=== PATIENT | male | born 1980 | race Caucasian/White ===

== ENCOUNTER 2019-09-02 13:25 | Outpatient (CLI) | payer OTHER ==
--- NOTE | 2019-09-02 16:18 | MRI ---
MRI LEFT KNEE: Date: 09/02/19 PROVIDED CLINICAL HISTORY: Left knee pain status post injury. FINDINGS: The anterior cruciate ligament, posterior cruciate ligament, medial collateral ligament, and lateral collateral ligamentous complex demonstrate an intact MRI appearance, as does the extensor mechanism. The medial and lateral menisci demonstrate no evidence for tear. No focal articular cartilage defect is apparent. There is a mildly prominent medial plica. There is a small knee joint effusion. No focal concerning r egional marrow or muscular signal abnormality is evident. Increased signal intensity on fluid sensiti ve sequences involving the anterior aspects of the patella is presumably on the basis of proximity to the coil given the normal T1 signal intensity present here. IMPRESSION: 1. Mildly prominent medial plica. 2. Small knee joint effusion. POS: OFF
== END 2019-09-02 13:26 | disposition home or self-care (01) ==
LOC: SCSMRI 13:25
PROVIDERS: ATTEND Orthopaedic Surgery
DX: M25.562 Pain in left knee (principal); M67.52 Plica syndrome, left knee; M25.462 Effusion, left knee

== ENCOUNTER 2019-10-15 07:02 | Outpatient (CLI) | payer OTHER ==
[2019-10-15 15:03] LABS: #Eosinphils 0.4 thou/uL (0.0-0.7); #Lymphocytes 1.9 thou/uL (1.20-3.40); #Monocytes 0.6 thou/uL (0.11-0.59); #Neutrophils 4.7 thou/uL (1.40-6.50); %Basophils 0.6 % (0.0-1.0); %Eosinophils 5.1 % (0.0-10.0); %Lymphocytes 25.2 % (21.0-51.0); %Neutrophils 61.2 % (42.0-75.0); Hemoglobin 14.9 g/dL (14.0-18.0); Mean Corpuscular HGB CONC 33.3 g/dL (32.0-36.0); Mean Corpuscular Hemoglobin 27.1 pg (27.0-31.0); Mean Corpuscular Volume 81.3 fL (78.0-98.0); Mean Platelet Volume 7.8 fL (7.4-10.4); Platelet Count 305 thou/uL (130-400); Red Blood Cell (RBC) Count 5.49 mill/uL (4.70-6.10); White Blood Cell (WBC) Count 7.6 thou/uL (4.8-10.8)
== END 2019-10-15 07:03 | disposition home or self-care (01) ==
LOC: LABBT 07:02
PROVIDERS: ATTEND Orthopaedic Surgery
DX: Z01.812 Encounter for preprocedural laboratory examination (principal); M23.92 Unspecified internal derangement of left knee
CPT/HCPCS: 85025

== ENCOUNTER 2019-10-18 06:10 | Day surgery (SDC) | payer OTHER ==
[2019-10-15 13:32] VITALS: BMI 25.8
[2019-10-18] MEDS ORDERED: PROPOFOL 20 ML ONE (06:39)
[2019-10-18] MEDS ORDERED: Fentanyl 100 MCG/2 ML VIAL ONE (07:02)
[2019-10-18] MEDS ORDERED: Midazolam HCl 2 mg/2 ml Vial ONE (07:02)
[2019-10-18] MEDS ORDERED: Ketorolac Tromethamine 30 MG/ML VIAL ONE (08:36)
--- NOTE | 2019-10-18 09:17 | OP ---
DATE OF PROCEDURE: 10/18/2019 PREOPERATIVE DIAGNOSIS: Symptomatic plica, left knee. POSTOPERATIVE DIAGNOSES: 1. Symptomatic plica, left knee. 2. 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 3. Loose body, greater than 1 cm. PROCEDURE: 1. Left knee arthroscopy with debridement and shaving of unstable cartilage flaps Grade 4 trochlea lesion and removal of medial plica 2. Removal of loose body greater than 1 cm CERTIFIED MEDICAL CODER: None. ESTIMATED BLOOD LOSS: Minimal. COMPLICATIONS: None. ANESTHESIA: He had general anesthetic. He also had a local knee block. DISPOSITION: He did go to recovery room in stable condition. INDICATIONS: This is a 38-year-old active male, who is continuously having problems with pain and swelling in the knee. Despite therapy and injection, he has failed to get symptomatic relief and at this time wished to have surgery. DESCRIPTION OF PROCEDURE: After all appropriate consent forms were explained and signed, he was taken back to the operative room and at this time was given a general anesthetic. Once the level of anesthesia was appropriate, a tourniquet was placed on the left thigh and leg was placed in arthroscopic leg harris. The limb was then prepped and draped in standard surgical fashion. Limb was exsanguinated and tourniquet taken to 300 mmHg. Inferolateral portal was established. Scope was placed into the knee joint. A needle localization technique was then used to make a medial working portal. Diagnostic arthroscopy commenced. The ACL and PCL were probed, found to be intact. Immediately, we noted a loose body in the notch and this was removed with a grasper. Again, this was greater than a centimeter in size. We then turned our attention to the medial compartment. Medial meniscus, femur , and tibia appeared in excellent condition. In the lateral compartment, we then evaluated the meniscus and was felt to be intact. The popliteus was intact. The femur was also intact. There was a small cartilaginous loose body posterior to the posterior horn and root of the lateral meniscus. This was removed with a shaver. It was approximately half a centimeter in size. At this time, the gutters were swept through. No loose bodies were noted. Patellofemoral joint was then evaluated. The patella overall appeared to be in good condition; however, the trochlea had a grade 4 lesion right in the central aspect with a large unstable chondral flap medially. This was taken down to a stable edge using a biter and shaver. We, at this time, also removed the medial plica. We then introduced a 0.0625 K-wire and drilled multiple holes into the grade 4 lesion. Once this was done, we went around the knee one more time looking for any remaining loose pieces, there were none. The scope was removed. The knee was drained and the portals were closed with simple nylon stitch. Bulky sterile dressing was applied. Tourniquet was let down. Toes pinked up nicely. The patient was awakened. He was taken to the recovery room in stable condition. All counts were correct at the end of the case and he did receive preoperative IV antibiotics. Job ID: [id number] [facility]
[2019-10-18] MEDS ORDERED: Bupivacaine HCl 0.5%/Epinephrine 1:200,000/PF 30 ml Vial ONE (10:53)
[2019-10-18] MEDS ORDERED: Lidocaine 1% PF 5 ML VIAL ONE (10:53)
== END 2019-10-18 10:30 | disposition home or self-care (01) ==
LOC: SDC 06:10
PROVIDERS: ATTEND Orthopaedic Surgery
PROC: 0SBD4ZZ Excision of Left Knee Joint, Percutaneous Endoscopic Approach (ICD-10-PCS; principal; 2019-10-18)
PROC: 0SCD4ZZ Extirpation of Matter from Left Knee Joint, Percutaneous Endoscopic Approach (ICD-10-PCS; principal; 2019-10-18)
DX: M67.52 Plica syndrome, left knee (principal); M23.42 Loose body in knee, left knee; M24.10 Other articular cartilage disorders, unspecified site; Z79.899 Other long term (current) drug therapy
CPT/HCPCS: J0670; J0690; J1885; J2001; J2250; J2704; J3010

== ENCOUNTER 2022-03-10 10:51 | Outpatient (CLI) | payer OTHER | END 2022-03-10 10:52 | disposition home or self-care (01) | LOC: SCSRAD 10:51 | PROVIDERS: ATTEND Nurse Practitioner Family | DX: M25.561 Pain in right knee (principal) ==